=== PATIENT | male | born 2005 | race Caucasian/White ===

== ENCOUNTER 2024-03-23 15:59 | Emergency (ER) | payer OTHER, SELFPAY ==
[2024-03-23 16:03] VITALS: BP 178/88; PULSE 84; TEMP 37.3; O2SAT 98; BMI 29.5
--- NOTE | 2024-03-23 16:17 | ED_ITS ---
HPI HPI - General Adult General Chief complaint: Extremity Injury, Lower Stated complaint: LOWER EXTREMITY INJURY Time Seen by Provider: 03/23/24 16:01 History of Present Illness HPI narrative: Patient is a 18-year-old male who presents to the emergency department for 3-day history of swelling in the right knee. Patient states he fell on concrete 3 days ago. He did sustain an abrasion to the front of the right knee and is noted to have redness and swelling to the knee anteriorly. He is able to ambulate although reports pain with doing so, ibuprofen taken prior to arrival. He had no other associated injuries. There has been no drainage from the abrasi on to the right knee. No fevers or vomiting. Related Data Previous Rx's ?Medication ?Instructions ?Recorded cephalexin 500 mg capsule 500 mg PO Q8H 10 days #30 caps 03/23/24 hydrocodone 5 mg-acetaminophen 325 1 tab PO Q6H PRN pain 3 days #12 03/23/24 mg tablet tabs sulfamethoxazole 800 1 tab PO BID 10 days #20 tabs 03/23/24 mg-trimethoprim 160 mg tablet (Bactrim DS) Allergies Allergy/AdvReac Type Severity Reaction Status Date / Time No Known Drug Allergies Allergy Verified 03/23/24 16:03 Opioid HPI Opioid Management Most Recent Opioid Data: Last Pain Scale 7 03/23/24 16:33 Last MAR Pain Assessment 03/23/24 16:33 Review of Systems ROS Constitutional Denies: fever or chills Ears, nose, mouth, and throat Denies: throat pain or nasal congestion Respiratory Denies: shortness of breath Gastrointestinal Denies: nausea or vomiting Musculoskeletal Reports: extremity pain, extremity swelling and joint pain; Denies: back pain or neck pain Integumentary/Breast Denies: rash Hematologic/Lymphatic Denies: easy bruising or easy bleeding Exam Narrative Exam Narrative: Gen.: Awake, alert, in no distress Head: Normocephalic, atraumatic ENT: Moist mucous membranes Respiratory: No respiratory distress Extremities: Diffuse tenderness and edema noted with no fluctuance or areas of abscess. Abrasion noted to the right anterior knee over the patella with surrounding erythema. Patient is able to fully flex and extend at the right knee with no pain out of proportion on movement. No circumferential erythema or red streaking noted. No drainage or purulence Psych: Normal mood and affect Neuro: No focal neuro deficit Skin: Warm, dry, intact Constitutional Vital Signs, click to edit/add: Last Vital Signs Temp 99.2 F 03/23/24 16:03 Pulse 84 03/23/24 16:03 Resp 18 03/23/24 16:03 BP 148/79 H 03/23/24 17:00 Pulse Ox 98 03/23/24 16:03 Course Vital Signs Vital signs: Vital Signs Temperature 99.2 F 03/23/24 16:03 Pulse Rate 84 03/23/24 16:03 Respiratory Rate 18 03/23/24 16:03 Blood Pressure 178/88 H 03/23/24 16:03 Pulse Oximetry 98 03/23/24 16:03 Temperature 99.2 F 03/23/24 16:03 Pulse Rate 84 03/23/24 16:03 Respiratory Rate 18 03/23/24 16:03 Blood Pressure 148/79 H 03/23/24 17:00 Pulse Oximetry 98 03/23/24 16:03 Medical Decision Making MDM Narrative Medical decision making narrative: This patient's vital signs are within normal limits, blood pressure was rechecked, 148/79 prior to discharge. Lab studies show normal white blood cell count, normal sed rate with mild hyponatremia and elevated CRP. X-rays with no evidence of acute fracture or dislocation. Patient was reevaluated by attending physician. He was treated for pain and given Bactrim and Keflex for suspected cellulitis. At this time he has a normal range of motion with no pain out of proportion on exam, no fluctuance. Low suspicion for septic arthritis at this time although I did contact Dr. Bryant for orthopedics and he will see the patient in 48 hours in the office. Patient encouraged to elevate the leg, second dose of Bactrim and Keflex was given for home for tonight with pain medication. Return to the ER if symptoms change or worsen. SHARED APC VISIT, PHYSICIAN ATTESTATION: [id number] I performed a substantive part of the MDM during the patient?s E/M visit. I personally evaluated and examined the patient. I personally made or approved the documented management plan and acknowledge its risk of complications. ? Medical Records Medical records reviewed: Yes I reviewed the patient's medical records Lab Data Lab results reviewed: Yes I reviewed the patient's lab results Labs: Lab Results 03/23/24 Range/Units 16:38 WBC 8.6 (4.0-11.0) 10^3/uL RBC 4.60 L (4.70-6.10) 10^6/uL Hgb 13.7 L (14.0-18.0) g/dL Hct 41.5 L (42.0-54.0) % MCV 90.2 (80.0-94.0) fL MCH 29.8 (25.9-34.0) pg MCHC 33.0 (29.9-35.2) g/dL RDW 12.4 (11.0-15.0) % Plt Count 207 (150-450) 10^3/uL MPV 10.2 (9.5-13.5) fL Neut % (Auto) 67.0 (43.0-75.0) % Lymph % (Auto) 20.9 (20.5-60.0) % [place] % (Auto) 9.0 (1.7-12.0) % Eos % (Auto) 2.5 (0.9-7.0) % Baso % (Auto) 0.4 (0.2-2.0) % Neut # (Auto) 5.7 (1.4-6.5) 10^3/uL Lymph # (Auto) 1.8 (1.2-3.8) 10^3/uL [place] # (Auto) 0.8 (0.3-0.8) 10^3/uL Eos # (Auto) 0.2 (0.0-0.7) 10^3/uL Baso # (Auto) 0.0 (0.0-0.1) 10^3/uL Abs Immat Gran (auto) 0.02 (0.00-0.03) 10^3/uL Imm/Tot Granulo (auto) 0.2 (0.0-0.5) % ESR 15 (<=15) mm/hr Sodium 127 L (136-145) mmol/L Potassium 3.7 (3.5-5.1) mmol/L Chloride 99 (98-107) mmol/L Carbon Dioxide 30.9 (21.0-32.0) mmol/L Anion Gap 0.8 BUN 12.0 (6.4-19.3) mg/dL Creatinine 1.10 (0.70-1.30) mg/dL Est GFR ( Amer) >60 (>=60) Est GFR (Non-Af Amer) >60 (>=60) BUN/Creatinine Ratio 10.9 Glucose 85 (74-106) mg/dL Calcium 8.7 (8.5-10.1) mg/dL C-Reactive Protein 3.23 H (<=0.50) mg/dL Imaging Data XR knee: Attestation: I have reviewed the pertinent imaging results. Radiologist's impression: ITS Impressions Knee X-Ray 03/23/24 16:42 IMPRESSION: No fracture or dislocation right knee. Soft tissue swelling right knee. Electronically authenticated by: WOLF MANSFIELD Date: 03/23/2024 18:05 Discharge Plan Discharge Stand Alone Forms: Work/School Release, Portal Instructions Chief Complaint: Extremity Injury, Lower Clinical Impression: Contusion of right knee, Cellulitis of right knee Patient Disposition: Home, Self-Care Time of Disposition Decision: 18:13 Condition: Good Prescriptions / Home Meds: New hydrocodone-acetaminophen 5-325 mg tablet 1 tab PO Q6H PRN (Reason: pain) 3 Days Qty: 12 0RF Rx Instructions: DX: M25.561 sulfamethoxazole-trimethoprim [Bactrim DS] 800-160 mg tablet 1 tab PO BID 10 Days Qty: 20 0RF cephalexin 500 mg capsule 500 mg PO Q8H 10 Days Qty: 30 0RF Print Language: Tamazight Instructions: Cellulitis (ED), Contusion in Adults (ED) Additional Instructions: Please call Dr. Bryant's office in [place] tomorrow for follow up appointment on Wed Referrals: Physician,Non-Staff, [Physician] - 1 week Edward Bryant MD [Physician] - 03/25/24 ([place] Office [address] [place] [address] ) Discharge Date/Time: 03/23/24 18:48
[2024-03-23] MEDS: OXYCODONE HCL/ACETAMINOPHEN 5MG/325MG 1 TAB PO (16:33)
[2024-03-23] MEDS: CEPHALEXIN 500 MG CAPSULE PO ×2 (16:33→18:38)
[2024-03-23] MEDS: SULFAMETHOXAZOLE/TRIMETHOPRIM 800-160 MG TABLET 1 TAB PO ×2 (16:33→18:38)
--- NOTE | 2024-03-23 16:42 | XR_ITS ---
[place] [id number] Patient Name: NICHO DE LA O MRN: [id number] date: 2005 Sex: M Assigned Patient Location: ER Current Patient Location: ED.MAIN Accession/Order Number: [id number] Exam Date: 03/23/2024 16:45 Report Date: 03/23/2024 18:05 At the request of: KRISH GARCIA Procedure: XR knee RT 4V EXAM: XR knee RT 4V , 03/23/2024 HISTORY: fall COMPARISON: None. TECHNIQUE: X-rays of the right knee, 4 views. FINDINGS: No fracture or dislocation right knee. Moderate soft tissue swelling anteriorly. Mild right knee joint effusion. The bones are well-mineralized. XR/XR knee RT 4V IMPRESSION: No fracture or dislocation right knee. Soft tissue swelling right knee. Electronically authenticated by: WOLF MANSFIELD Date: 03/23/2024 18:05
[2024-03-23 16:50] LABS: Basophils Percent Auto 0.4 % (0.2-2.0); Eosinophils Absolute Auto 0.2 10^3/uL (0.0-0.7); Eosinophils Percent Auto 2.5 % (0.9-7.0); Hematocrit 41.5 % (42.0-54.0); Hemoglobin 13.7 g/dL (14.0-18.0); Immature Granulocytes Abs Auto 0.02 10^3/uL (0.00-0.03); Immature Granulocytes Pct Auto 0.2 % (0.0-0.5); Lymphocytes Absolute Auto 1.8 10^3/uL (1.2-3.8); Lymphocytes Percent Auto 20.9 % (20.5-60.0); Mean Corpuscular Hemoglobin 29.8 pg (25.9-34.0); Mean Corpuscular Volume 90.2 fL (80.0-94.0); Mean Platelet Volume 10.2 fL (9.5-13.5); Monocytes Absolute Auto 0.8 10^3/uL (0.3-0.8); Neutrophils Absolute Auto 5.7 10^3/uL (1.4-6.5); Platelet Count 207 10^3/uL (150-450); Red Cell Distribution Width 12.4 % (11.0-15.0); White Blood Count 8.6 10^3/uL (4.0-11.0)
[2024-03-23 17:00] VITALS: BP 148/79
[2024-03-23 17:01] LABS: Anion Gap 0.8; BUN Creatinine Ratio 10.9; C Reactive Protein 3.23 mg/dL (<=0.50); Calcium 8.7 mg/dL (8.5-10.1); Carbon Dioxide 30.9 mmol/L (21.0-32.0); Chloride 99 mmol/L (98-107); Estimated GFR (African America >60 (>=60); Estimated GFR (Non-African Ame >60 (>=60); Glucose 85 mg/dL (74-106); Potassium 3.7 mmol/L (3.5-5.1); Sodium 127 mmol/L (136-145)
[2024-03-23 17:10] LABS: Erythrocyte Sedimentation Rate 15 mm/hr (<=15)
[2024-03-23] MEDS: HYDROCODONE/ACET 5-325 MG TABLET 2 TAB PO (18:37)
== END 2024-03-23 18:48 | disposition home or self-care (01) ==
PROVIDERS: Physician Assistant; Emergency Provider Emergency Medicine; PCP Psychiatry & Neurology Neurology
DX: S80.01XA Contusion of right knee, initial encounter (principal); L03.115 Cellulitis of right lower limb; W19.XXXA Unspecified fall, initial encounter
CPT/HCPCS: 36415; 73564; 80048; 85025; 85652; 86140; 99284